=== PATIENT | female | born 1965 | race Caucasian/White ===

== ENCOUNTER 2021-09-04 13:29 | Emergency (ER) | payer OTHER ==
[2021-09-04 14:27] LABS: HEMOGLOBIN 14.5 gm/dl (12.3-15.3); RED BLOOD COUNT 4.67 M/UL (4.00-5.10); WHITE BLOOD COUNT 10.1 K/UL (4.5-11.0)
[2021-09-04 14:46] LABS: BUN/CREATININE RATIO 12 (0-10)
[2021-09-04] MEDS ORDERED: HYDROCODON-ACE1 EAC4 PO (17:06)
[2021-09-04] MEDS ORDERED: AMOX TR-K CLV1 EAC4 PO (17:06)
[2021-09-04] MEDS ORDERED: FLORASTOR250 MG PO (17:06)
== END 2021-09-04 17:18 | disposition home or self-care (01) ==
LOC: ER1 13:29
PROVIDERS: Emergency Medicine
DX: K57.32 Diverticulitis of large intestine without perforation or abscess without bleeding (principal); I10 Essential (primary) hypertension; F17.200 Nicotine dependence, unspecified, uncomplicated
CPT/HCPCS: 80053; 81001; 83690; 85025; 99284; Q9967